=== PATIENT | female | born 1985 | race Caucasian/White ===

== ENCOUNTER 2018-06-13 20:13 | Inpatient (IN) | payer OTHER ==
[2018-06-13 21:00] LABS: ADD MAN DIFF? NO
[2018-06-13] MEDS ORDERED: ACETAMINOPHEN/CODEINE #3 TAB PO (21:00)
[2018-06-13] MEDS ORDERED: MISOPROSTOL 200 MCG TAB PR (21:00)
[2018-06-13] MEDS ORDERED: IBUPROFEN 600 MG TAB PO (21:00)
[2018-06-13] MEDS ORDERED: METHYLERGONOVINE 0.2 MG INJ IM (21:00)
[2018-06-13] MEDS ORDERED: OXYTOCIN 30 UNITS/LR 500 ML IV ×2 (21:00)
[2018-06-13] MEDS ORDERED: CARBOPROST 250 MCG INJ IM (21:00)
[2018-06-13] MEDS ORDERED: LIDOCAINE 1% (MPF) 30 ML INJ INJ (21:00)
[2018-06-13 21:01] LABS: WHITE BLOOD COUNT 9.8 10^3/ul (4.8-10.8)
[2018-06-13 21:01] LABS: BASOPHILS % 0.2 % (0.0-2.0); EOSINOPHILS # 0.1 10^3/ul (0.0-0.5); EOSINOPHILS % 0.9 % (0.0-7.0); HEMATOCRIT 38.8 % (37.0-47.0); HEMOGLOBIN 12.8 g/dl (12.0-16.0); LYMPHOCYTES # 2.5 10^3/ul (0.8-2.9); LYMPHOCYTES % 25.3 % (15.0-51.0); MEAN CORPUSCULAR VOLUME 90.9 fl (82.0-101.0); MEAN PLATELET VOLUME 11.1 fl (7.4-10.4); MONOCYTE # 0.8 10^3/ul (0.3-0.9); MONOCYTES % 7.8 % (0.0-11.0); NEUTROPHIL # 6.4 10^3/ul (1.6-7.5); NEUTROPHILS % 64.9 % (39.0-77.0); PLATELET COUNT 209 10^3/UL (140-415); RED BLOOD COUNT 4.27 10^6/ul (4.20-5.40); RED CELL DISTRIBUTION WIDTH 14.8 % (11.5-14.5)
[2018-06-13] MEDS: AMPICILLIN 2 GM/NS (PMX) 100 ML IV (21:06)
[2018-06-13] MEDS: LACTATED RINGER'S 1,000 ML IV* (21:06)
[2018-06-13] MEDS: BUTORPHANOL 2 MG INJ IV (21:12)
[2018-06-13 21:22] LABS: INR 0.87; PROTIME 11.9 Sec (11.9-14.9); PT RATIO 0.9
[2018-06-13 21:23] LABS: PARTIAL THROMBOPLASTIN TIME 29.1 Sec (25.0-35.0)
[2018-06-13 21:56] LABS: HEPATITIS B SURFACE ANTIGEN NEGATIVE (NEGATIVE)
[2018-06-13] MEDS: OXYTOCIN 30 UNITS/LR 500 ML IV ×3 (22:03→23:53)
[2018-06-14] MEDS ORDERED: ZOLPIDEM 5 MG TAB PO
[2018-06-14] MEDS ORDERED: ACETAMINOPHEN 325 MG TAB PO
[2018-06-14] MEDS ORDERED: NACL 0.9% 3 ML SYG IV
[2018-06-14] MEDS ORDERED: CARBOPROST 250 MCG INJ IM
[2018-06-14] MEDS ORDERED: OXYTOCIN 30 UNITS/LR 500 ML IV
[2018-06-14] MEDS ORDERED: HYDROCODONE/APAP (5/325) TAB PO
[2018-06-14] MEDS ORDERED: METHYLERGONOVINE 0.2 MG INJ IM
[2018-06-14] MEDS ORDERED: DIPHENHYDRAMINE 25 MG CAP PO
[2018-06-14] MEDS ORDERED: ONDANSETRON 4 MG INJ IV
[2018-06-14] MEDS ORDERED: AMPICILLIN 1 GM/NS (PMX) 50 ML IV (01:00)
[2018-06-14] MEDS: LACTATED RINGER'S 1,000 ML IV* ×2 (03:10→05:00)
[2018-06-14] MEDS: LANOLIN 7 GM TUBE TOP (04:25)
[2018-06-14] MEDS: WITCH HAZEL/GLYCERIN PAD PR (04:25)
[2018-06-14] MEDS: IBUPROFEN 600 MG TAB PO ×5 (04:25→23:42)
[2018-06-14] MEDS: SENNA/DOCUSATE NA (8.6MG/50MG) TAB PO ×2 (10:20→21:00)
[2018-06-14 16:31] LABS: WHITE BLOOD COUNT 11.2 10^3/ul (4.8-10.8)
[2018-06-14 16:31] LABS: ADD MAN DIFF? NO; BASOPHILS % 0.3 % (0.0-2.0); EOSINOPHILS # 0.1 10^3/ul (0.0-0.5); EOSINOPHILS % 0.6 % (0.0-7.0); HEMATOCRIT 35.5 % (37.0-47.0); HEMOGLOBIN 11.6 g/dl (12.0-16.0); MEAN CORPUSCULAR HEMOGLOBIN 30.2 pg (29.0-33.0); MEAN CORPUSCULAR HGB CONC 32.7 g/dl (32.0-37.0); MEAN CORPUSCULAR VOLUME 92.4 fl (82.0-101.0); MEAN PLATELET VOLUME 11.1 fl (7.4-10.4); MONOCYTE # 0.6 10^3/ul (0.3-0.9); MONOCYTES % 5.5 % (0.0-11.0); NEUTROPHIL # 8.4 10^3/ul (1.6-7.5); PLATELET COUNT 206 10^3/UL (140-415); RED BLOOD COUNT 3.84 10^6/ul (4.20-5.40)
[2018-06-14 17:17] LABS: RAPID PLASMA REAGIN NONREACTIVE (NR)
[2018-06-15] MEDS: IBUPROFEN 600 MG TAB PO ×3 (05:30→17:26)
[2018-06-15] MEDS: VARICELLA VACCINE LIVE/PF 1,350 UNIT/0.5 ML ML SC* (09:00)
[2018-06-15] MEDS: MEASLES,MUMPS,RUBELLA VACCINE INJ SC* (09:00)
[2018-06-15] MEDS: DIPHTH/TET/ACEL PERTUSS (ADULT) 0.5 ML VIAL IM* (09:00)
[2018-06-15] MEDS: SENNA/DOCUSATE NA (8.6MG/50MG) TAB PO (09:13)
== END 2018-06-15 19:00 | disposition home or self-care (01) | DRG 775 ==
LOC: OBT 20:13 → L-D 20:14 → OBT 20:30 → L-D 20:50 → PP1 23:51
PROVIDERS: Obstetrics & Gynecology
PROC: 10E0XZZ Delivery of Products of Conception, External Approach (ICD-10-PCS; principal; 2018-06-13)
DX: O80 Encounter for full-term uncomplicated delivery (principal); Z3A.38 38 weeks gestation of pregnancy; Z37.0 Single live birth
CPT/HCPCS: 85025; 85610; 85730; 86592; 86850; 86900; 86901; 87340; 99464